=== PATIENT | male | born 1990 | race Caucasian/White ===

== ENCOUNTER → 2017-04-05 | Outpatient (CLI) | payer OTHER ==
[~2017-04-05] MED LIST: ADDE20XR PO; AZIT250T3 PO; PERC10TA27 PO; RANI1TAB5 PO
--- NOTE | 2017-04-12 12:11 | RSPPFT ---
DATE OF PROCEDURE: 04/05/17 COMMENTS: Spirometry is within normal limits. Post-bronchodilator study demonstrated no significant change. Lung volumes demonstrated a mildly increased RV/TLC ratio indicating hyperinflation and air trapping. Diffusion capacity is normal. Flow volume loops appear unremarkable. IMPRESSION: 1. Essentially normal pulmonary function study. 2. No significant change following use of bronchodilator. 3. Normal diffusion capacity.
== END ==
LOC: HRSP 09:17
PROVIDERS: ATTEND Family Medicine
DX: J40 Bronchitis, not specified as acute or chronic (principal)
CPT/HCPCS: 94060; 94726; 94729